=== PATIENT | female | born 1975 | race Caucasian/White ===

== ENCOUNTER 2018-12-21 06:50 | Day surgery (SDC) | payer BC ==
[~2018-12-21 06:50] MED LIST: Lactated Ringers 1,000 ML IV SCH
--- NOTE | 2018-12-21 07:16 | PCM.PREANE ---
Preanesthetic Assessment - Anesthesia/Transfusion/Family Hx Anesthesia History: Prior Anesthesia Without Reaction Family History of Anesthesia Reaction: No Transfusion History: Prior Transfusion Without Reaction Intubation History: Unknown - Review of Systems General: No Symptoms Pulmonary: No Symptoms Cardiovascular: No Symptoms Gastrointestinal: No Symptoms Neurological: No Symptoms Other: Reports: None - Physical Assessment Height: 1.6 m Weight: 86.183 kg ASA Class: 2 Mental Status: Alert & Oriented x3 Airway Class: Mallampati = 1 Dentition: Reports: Normal Dentition Thyro-Mental Finger Breadths: 3 Mouth Opening Finger Breadths: 3 ROM/Head Extension: Full Lungs: Clear to Auscultation, Normal Respiratory Effort Cardiovascular: Regular Rate, Regular Rhythm - Lab Values: Laboratory Last Values Urine HCG, Qual NEGATIVE (NEGATIVE) 12/21/18 07:00 - Allergies Allergies/Adverse Reactions: Allergies Allergy/AdvReac Type Severity Reaction Status Date / Time No Known Allergies Allergy Verified 12/19/18 10:19 - Blood Blood Available: No - Anesthesia Plan Pre-Op Medication Ordered: None - Acknowledgements Anesthesia Type Planned: General Anesthesia Pt an Appropriate Candidate for the Planned Anesthesia: Yes Alternatives and Risks of Anesthesia Discussed w Pt/Guardian: Yes Pt/Guardian Understands and Agrees with Anesthesia Plan: Yes PreAnesthesia Questionnaire HEENT History: Reports: Other (See Below) Other HEENT History: wears glasses Cardiovascular History: Reports: None Respiratory History: Reports: None Gastrointestinal History: Reports: Other (See Below) Other Gastrointestinal History: hx crohn's Genitourinary History: Reports: None 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: Musculoskeletal History: Reports: None Neurological History: Reports: None Psychiatric History: Reports: None Endocrine/Metabolic History: Reports: Obesity/BMI 30+ Hematologic History: Reports: Anemia, Blood Transfusion(s) Immunologic History: Reports: None Oncologic (Cancer) History: Reports: None Dermatologic History: Reports: None - Past Surgical History Head Surgeries/Procedures: Reports: None HEENT Surgical History: Reports: None Cardiovascular Surgical History: Reports: None Respiratory Surgical History: Reports: None GI Surgical History: Reports: Colonoscopy, EGD Female Surgical History: Reports: Section (x2), Endometrial Ablation Endocrine Surgical History: Reports: None Neurological Surgical History: Reports: None Musculoskeletal Surgical History: Reports: None Oncologic Surgical History: Reports: None Dermatological Surgical History: Reports: None - SUBSTANCE USE Smoking Status *Q: Former Smoker Tobacco Use Within Last Twelve Months: No Recreational Drug Use History: No - HOME MEDS Home Medications: Home Meds . [No Known Home Meds] 12/19/18 [History] - CURRENT (IN HOUSE) MEDS Current Meds: Current Medications Cefazolin Sodium/Dextrose 2 gm (/ Premix) 50 mls @ 100 mls/hr IV ONCALL NIKIA Lactated Ringer's (Ringers, Lactated) 1,000 mls @ 100 mls/hr IV [facility] Oxycodone/Acetaminophen (Percocet 325-5 Mg) 1 - 2 tab PO Q4H PRN PRN Reason: Pain
[2018-12-21] MEDS ORDERED: Lidocaine 1% 20 ML MDV ONE (07:28)
[2018-12-21] MEDS ORDERED: Acetaminophen/oxyCODONE 325-5 MG Tab PO PRN (08:00)
[2018-12-21] MEDS ORDERED: ceFAZolin 2 GM in Premix Bag 1 BAG IV SCH (08:00)
[2018-12-21] MEDS ORDERED: Propofol 200 MG/20 ML SDV ONE (08:15)
[2018-12-21] MEDS ORDERED: Midazolam 1 MG/ML 2 ML SDV ONE (08:15)
[2018-12-21] MEDS ORDERED: fentaNYL 250 MCG/5 ML SDV ONE (08:15)
[2018-12-21] MEDS ORDERED: Ondansetron 4 MG/2 ML SDV IVPUSH ONE (08:56)
[2018-12-21] MEDS ORDERED: fentaNYL 100 MCG/2 ML SDV IVPUSH PRN (08:56)
[2018-12-21] MEDS ORDERED: HYDROmorphone 2 MG/ML SDV IVPUSH ONE (08:56)
[2018-12-21] MEDS ORDERED: Ondansetron 4 MG/2 ML SDV ONE (08:57)
[2018-12-21] MEDS ORDERED: Dexamethasone 4 MG/ML 5 ML MDV ONE (08:57)
[2018-12-21] MEDS ORDERED: Ketorolac 30 MG/ML SDV ONE (08:57)
--- NOTE | 2018-12-21 09:07 | PCM.OPNOTE ---
- General Post-Op/Procedure Note Date of Surgery/Procedure: 12/21/18 Operative Procedure(s): L knee scope with PMM Post-Op Diagnosis: L knee medial meniscus tear Anesthesia Technique: General LMA Primary Surgeon: Jessica Chamorro Bat Lathe Operator: Tana Beard in mLs: 5 Condition: Good Free Text/Narrative:: tt=12 min #[id number]
[2018-12-21] MEDS ORDERED: HYDROmorphone 2 MG/ML Syringe ONE (10:41)
--- NOTE | 2018-12-21 15:27 | OR ---
SURGEON: Jessica Chamorro MD DATE OF PROCEDURE: 12/21/2018 PREOPERATIVE DIAGNOSIS: Left knee medial meniscus tear. POSTOPERATIVE DIAGNOSIS: Left knee medial meniscus tear. PROCEDURE: Left knee arthroscopy with partial medial meniscectomy. STRUCTURAL TEST ENGINEER: Tana Beard RN. ANESTHESIA: General. ESTIMATED BLOOD LOSS: 5 mL. TOURNIQUET TIME: 12 minutes. COMPLICATIONS: None. DVT PROPHYLAXIS: Not indicated. IMPLANTS USED: None. BRIEF HISTORY: Jeannine is a 43-year-old female, who has had complaint of progressive left knee pain. An MRI did confirm a tear of the medial meniscus. Due to her lack of response to conservative treatment, I did recommend surgical intervention. The risks and goals of procedure were discussed with the patient and were documented preoperatively. She agreed to proceed. DESCRIPTION OF PROCEDURE: The patient was properly identified and brought to the operating room. She was transferred from the OR cart and placed on the operating table in supine position. General anesthesia was administered. After adequate anesthesia was obtained, a well-padded tourniquet was applied to the left lower extremity. The left lower extremity was then prepped in standard fashion using ChloraPrep solution. It was then sterilely draped. A time-out was performed to ensure correct site and procedure. Preoperative antibiotics were given. The surgical site had been marked preoperatively. An Esmarch was used to exsanguinate the left lower extremity and the tourniquet was inflated to 250 mmHg. A lateral portal arthrotomy was established. Blunt trocar and cannula were introduced into the suprapatellar pouch. Camera, inflow, and outflow were assembled. No significant synovitis was noted. The patellofemoral joint was visualized. No degenerative changes were noted. The patella appeared to track centrally. I then extended down the lateral and medial gutter. No loose bodies were identified. I then entered the medial compartment. A medial portal arthrotomy was established. A blunt probe was inserted. She was found to have a radial tear of the posterior horn of the medial meniscus, which was unstable. Using a combination of biters and shaver, this was resected back to a stable remnant. The remainder of the meniscus was probed and found to be stable. The joint surfaces showed minor grade 1 to grade 2 degenerative changes in the medial compartment. I then entered the notch. Both the ACL and PCL were visualized and probed and found to be intact. I then entered the lateral compartment. The lateral meniscus was intact. This was probed and found to be stable. 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 Instruments were then removed from the knee. The portal sites were closed with 3-0 nylon. A 1% lidocaine was injected along the portal tracts. Xeroform gauze was placed over the wound and a bulky dressing was applied. The tourniquet was then deflated. She was awakened from her anesthetic and transferred back to the operating room cart. She was brought to recovery room in stable condition. All needle and sponge counts were correct. REGGIE / ADINA /[id number]
== END 2018-12-21 11:30 | disposition home or self-care (01) ==
LOC: MW.SDS 06:50
PROVIDERS: ATTEND Orthopaedic Surgery
DX: S83.242A Other tear of medial meniscus, current injury, left knee, initial encounter (principal); M25.462 Effusion, left knee; K50.90 Crohn's disease, unspecified, without complications; X58.XXXA Exposure to other specified factors, initial encounter; Y93.68 Activity, volleyball (beach) (court); Z87.891 Personal history of nicotine dependence
CPT/HCPCS: 29881; 81025; A9270; J1100; J1170; J1885; J2001; J2250; J2405; J2704; J3010; J7120; 88304

== ENCOUNTER 2019-10-19 21:37 | Emergency (ER) | payer BC ==
--- NOTE | 2019-10-19 22:01 | EDM.PDOC ---
ED HPI GENERAL MEDICAL PROBLEM - General Chief Complaint: Gastrointestinal Problem Stated Complaint: BLADDER PROBLEM Time Seen by Provider: 10/19/19 21:53 Source of Information: Reports: Patient History Limitations: Reports: No Limitations - History of Present Illness INITIAL COMMENTS - FREE TEXT/NARRATIVE: -43 year-old female presents with right upper quadrant pain nausea vomiting. Patient has a strong family history of gallbladder disease and thinks she has gallbladder disease. Onset: Today Duration: Hour(s): Location: Reports: Abdomen Quality: Reports: Ache Severity: Moderate Improves with: Reports: None Worsens with: Reports: None Context: Reports: Activity Associated Symptoms: Reports: No Other Symptoms, Nausea/Vomiting Right Shoulder Pain Score (Numeric/FACES): 5 - Related Data Allergies Allergy/AdvReac Type Severity Reaction Status Date / Time No Known Allergies Allergy Verified 10/19/19 21:50 Home Meds: Home Meds . 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: Musculoskeletal History: Reports: None Neurological History: Reports: None Psychiatric History: Reports: None Endocrine/Metabolic History: Reports: Obesity/BMI 30+ Hematologic History: Reports: Anemia, Blood Transfusion(s) Immunologic History: Reports: None Oncologic (Cancer) History: Reports: None Dermatologic History: Reports: None - Past Surgical History Head Surgeries/Procedures: Reports: None HEENT Surgical History: Reports: None Cardiovascular Surgical History: Reports: None Respiratory Surgical History: Reports: None GI Surgical History: Reports: Colonoscopy, EGD Female Surgical History: Reports: Section (x2), Endometrial Ablation Endocrine Surgical History: Reports: None Neurological Surgical History: Reports: None Musculoskeletal Surgical History: Reports: None Oncologic Surgical History: Reports: None Dermatological Surgical History: Reports: None ED ROS GENERAL - Review of Systems Review Of Systems: See Below Constitutional: Reports: No Symptoms. Denies: Fever, Chills, Malaise HEENT: Reports: No Symptoms. Denies: Contact Lenses, Dental Pain, Ear Discharge Respiratory: Reports: No Symptoms. Denies: Shortness of Breath, Wheezing, Pleuritic Chest Pain Cardiovascular: Reports: No Symptoms. Denies: Chest Pain, Blood Pressure Problem, Dyspnea on Exertion, Edema Endocrine: Reports: No Symptoms GI/Abdominal: Reports: Abdominal Pain, Nausea, Vomiting, Other (Right upper quadrant pain) : Reports: No Symptoms Musculoskeletal: Reports: No Symptoms Skin: Reports: No Symptoms. Denies: Cyanosis, Jaundice, Mottled, Pallor, Bruising, Pruritis, Rash, Erythema Neurological: Reports: No Symptoms. Denies: Confusion, Dizziness Psychiatric: Reports: No Symptoms. Denies: Agitation, Anxiety Hematologic/Lymphatic: Reports: No Symptoms. Denies: Anemia, Easy Bleeding Immunologic: Reports: No Symptoms. Denies: Anaphylaxis, Food Allergy, Grass Allergy, Mold Allergy ED EXAM, GI/ABD - Physical Exam Exam: See Below Text/Narrative:: This is a 43-year-old female with right upper quadrant pain. History of gallstones in her family Exam Limited By: No Limitations General Appearance: Alert, WD/WN, No Apparent Distress Eyes: Bilateral: Normal Appearance, EOMI Ears: Normal External Exam, Normal Canal, Hearing Grossly Normal, Normal TMs Throat/Mouth: Normal Inspection Head: Atraumatic Neck: Normal Inspection, Supple, Non-Tender Respiratory/Chest: No Respiratory Distress, Lungs Clear, Normal Breath Sounds, No Accessory Muscle Use Cardiovascular: Normal Peripheral Pulses, Regular Rate, Rhythm, No JVD, No Murmur GI/Abdominal Exam: Normal Bowel Sounds, Soft, Non-Tender, No Distention, No Abnormal Bruit (Female) Exam: Deferred. No: Normal External Exam, Normal Speculum Exam Rectal (Female) Exam: Deferred Back Exam: Normal Inspection, Full Range of Motion Psychiatric: Normal Affect, Normal Mood Skin Exam: Warm, Dry, Intact, Normal Color Course - Vital Signs Text/Narrative:: Patient started on IV fluids she declined her pain medicine. Ultrasound reveals no evidence of gallstones but does show a thickened contracted gallbladder. Patient's chest x-ray is normal. Patient's labs CBC and CMP are normal limits with normal LFTs. Patient will be discharged home with a diagnosis of gastroenteritis. Patient to follow-up with primary care physician Last Recorded V/S: Last Vital Signs Temp 98.0 F 10/19/19 21:44 Pulse 84 10/19/19 21:44 Resp 18 10/19/19 21:44 BP 132/88 10/19/19 21:44 Pulse Ox 99 10/19/19 21:44 - Orders/Labs/Meds Orders: Active Orders 24 hr Category Date Time Status Sodium Chloride 0.9% [Normal Saline] 1,000 ml Med 10/19/19 22:03 Active IV .Bolus Medication Orders Sodium Chloride (Normal Saline) 1,000 mls @ 1,000 drops/hr IV .Bolus ONE Stop: 10/20/19 13:02 Last Admin: 10/19/19 22:31 Dose: 1,000 drops/hr Labs: Laboratory Tests 10/19/19 10/19/19 10/19/19 Range/Units 22:10 22:10 23:13 WBC 10.77 (4.0-11.0) K/uL RBC 4.36 (4.30-5.90) M/uL Hgb 11.4 L (12.0-16.0) g/dL Hct 34.9 L (36.0-46.0) % MCV 80.0 (80.0-98.0) fL MCH 26.1 L (27.0-32.0) pg MCHC 32.7 (31.0-37.0) g/dL RDW Std Deviation 44.3 (28.0-62.0) fl RDW Coeff of Hernan 15 (11.0-15.0) % Plt Count 418 H (150-400) K/uL MPV 9.40 (7.40-12.00) fL Neut % (Auto) 65.3 (48.0-80.0) % Lymph % (Auto) 26.6 (16.0-40.0) % [place] % (Auto) 6.3 (0.0-15.0) % Eos % (Auto) 1.5 (0.0-7.0) % Baso % (Auto) 0.3 (0.0-1.5) % Neut # (Auto) 7.0 H (1.4-5.7) K/uL Lymph # (Auto) 2.9 H (0.6-2.4) K/uL King[place] # (Auto) 0.7 (0.0-0.8) K/uL Eos # (Auto) 0.2 (0.0-0.7) K/uL Baso # (Auto) 0.0 (0.0-0.1) K/uL Nucleated RBC % 0.0 /100WBC Nucleated RBCs # 0 K/uL Sodium 139 (136-145) mmol/L Potassium 3.9 (3.5-5.1) mmol/L Chloride 103 (98-107) mmol/L Carbon Dioxide 27.0 (21.0-32.0) mmol/L BUN 14 (7.0-18.0) mg/dL Creatinine 0.8 (0.6-1.0) mg/dL Est Cr Clr Drug Dosing 77.44 mL/min Estimated GFR (MDRD) > 60.0 ml/min Glucose 100 (74-106) mg/dL Calcium 9.1 (8.5-10.1) mg/dL Total Bilirubin 0.2 (0.2-1.0) mg/dL AST 16 (15-37) IU/L ALT 33 (14-63) IU/L Alkaline Phosphatase 82 (46-116) U/L Total Protein 8.1 (6.4-8.2) g/dL Albumin 3.7 (3.4-5.0) g/dL Globulin 4.4 H (2.6-4.0) g/dL Albumin/Globulin Ratio 0.8 L (0.9-1.6) Urine Color YELLOW Urine Appearance CLEAR Urine pH 6.5 (5.0-8.0) Ur Specific [place] 1.020 (1.001-1.035) Urine Protein NEGATIVE (NEGATIVE) mg/dL Urine Glucose (UA) NEGATIVE (NEGATIVE) mg/dL Urine Ketones NEGATIVE (NEGATIVE) mg/dL Urine Occult Blood NEGATIVE (NEGATIVE) Urine Nitrite NEGATIVE (NEGATIVE) Urine Bilirubin NEGATIVE (NEGATIVE) Urine Urobilinogen 0.2 (<2.0) EU/dL Ur Leukocyte Esterase NEGATIVE (NEGATIVE) Urine HCG, Qual (NEGATIVE) 10/19/19 Range/Units 23:13 WBC (4.0-11.0) K/uL RBC (4.30-5.90) M/uL Hgb (12.0-16.0) g/dL Hct (36.0-46.0) % MCV (80.0-98.0) fL MCH (27.0-32.0) pg MCHC (31.0-37.0) g/dL RDW Std Deviation (28.0-62.0) fl RDW Coeff of Hernan (11.0-15.0) % Plt Count (150-400) K/uL MPV (7.40-12.00) fL Neut % (Auto) (48.0-80.0) % Lymph % (Auto) (16.0-40.0) % [place] % (Auto) (0.0-15.0) % Eos % (Auto) (0.0-7.0) % Baso % (Auto) (0.0-1.5) % Neut # (Auto) (1.4-5.7) K/uL Lymph # (Auto) (0.6-2.4) K/uL Kingman # (Auto) (0.0-0.8) K/uL Eos # (Auto) (0.0-0.7) K/uL Baso # (Auto) (0.0-0.1) K/uL Nucleated RBC % /100WBC Nucleated RBCs # K/uL Sodium (136-145) mmol/L Potassium (3.5-5.1) mmol/L Chloride (98-107) mmol/L Carbon Dioxide (21.0-32.0) mmol/L BUN (7.0-18.0) mg/dL Creatinine (0.6-1.0) mg/dL Est Cr Clr Drug Dosing mL/min Estimated GFR (MDRD) ml/min Glucose (74-106) mg/dL Calcium (8.5-10.1) mg/dL Total Bilirubin (0.2-1.0) mg/dL AST (15-37) IU/L ALT (14-63) IU/L Alkaline Phosphatase (46-116) U/L Total Protein (6.4-8.2) g/dL Albumin (3.4-5.0) g/dL Globulin (2.6-4.0) g/dL Albumin/Globulin Ratio (0.9-1.6) Urine Color Urine Appearance Urine pH (5.0-8.0) Ur Specific [place] (1.001-1.035) Urine Protein (NEGATIVE) mg/dL Urine Glucose (UA) (NEGATIVE) mg/dL Urine Ketones (NEGATIVE) mg/dL Urine Occult Blood (NEGATIVE) Urine Nitrite (NEGATIVE) Urine Bilirubin (NEGATIVE) Urine Urobilinogen (<2.0) EU/dL Ur Leukocyte Esterase (NEGATIVE) Urine HCG, Qual NEGATIVE (NEGATIVE) Meds: Medications Generic Name Dose Route Start Last Admin Trade Name Freq PRN Reason Stop Dose Admin Sodium Chloride 1,000 mls @ 1,000 drops/hr 10/19/19 22:03 10/19/19 22:31 Normal Saline IV 10/20/19 13:02 1,000 drops/hr .Bolus ONE Administration Discontinued Medications Generic Name Dose Route Start Last Admin Trade Name Freq PRN Reason Stop Dose Admin Morphine Sulfate 6 mg 10/19/19 22:05 10/19/19 22:31 Morphine IVPUSH 10/19/19 22:06 Not Given ONETIME ONE Ondansetron HCl 4 mg 10/19/19 22:05 10/19/19 22:31 Zofran IVPUSH 10/19/19 22:06 Not Given ONETIME ONE Ondansetron HCl Confirm 10/19/19 22:06 10/19/19 22:31 Zofran Administered 10/19/19 22:07 Not Given Dose 4 mg .ROUTE .STK-MED ONE Departure - Departure Time of Disposition: 00:06 Disposition: Home, Self-Care 01 Condition: Good Clinical Impression: Gastroenteritis - Discharge Information Instructions: Viral Gastroenteritis, Adult Referrals: Scarlett Brito DO [Primary Care Provider] - Forms: ED Department Discharge Sepsis Event Note - Evaluation Sepsis Screening Result: No Definite Risk - Focused Exam Vital Signs: Vital Signs Temp Pulse Resp BP Pulse Ox 10/19/19 21:44 98.0 F 84 18 132/88 99 Date Exam was Performed: 10/20/19 Time Exam was Performed: 00:05 - My Orders Last 24 Hours: My Active Orders 10/19/19 22:03 Sodium Chloride 0.9% [Normal Saline] 1,000 ml IV .Bolus - Assessment/Plan Last 24 Hours: My Active Orders 10/19/19 22:03 Sodium Chloride 0.9% [Normal Saline] 1,000 ml IV .Bolus
[2019-10-19] MEDS ORDERED: Sodium Chloride 0.9% 1,000 ML IV ONE (22:03)
[2019-10-19] MEDS ORDERED: Morphine 10 MG/ML Syringe IVPUSH ONE (22:05)
[2019-10-19] MEDS ORDERED: Ondansetron 4 MG/2 ML SDV IVPUSH ONE (22:05)
[2019-10-19] MEDS ORDERED: Ondansetron 4 MG/2 ML SDV ONE (22:06)
[2019-10-19 22:44] LABS: BLOOD UREA NITROGEN,BUN 14 mg/dL (7.0-18.0); CHLORIDE,CL 103 mmol/L (98-107); GLUCOSE RANDOM 100 mg/dL (74-106); POTASSIUM,K 3.9 mmol/L (3.5-5.1); SODIUM,NA 139 mmol/L (136-145)
--- NOTE | 2019-10-19 23:12 | CR ---
INDICATION: Pain TECHNIQUE: Frontal view of the chest. COMPARISON: None FINDINGS: The lungs are clear. There is no sizable pleural effusion or pneumothorax. The cardiomediastinal silhouette is normal. There is a small hiatal hernia. The visualized osseous structures are unremarkable. IMPRESSION: No acute process. Small hiatal hernia. Dictated by Geoff Maldonado MD @ Oct 19 2019 11:08PM Signed by Dr. Geoff Maldonado @ Oct 19 2019 11:10PM
--- NOTE | 2019-10-19 23:14 | US ---
INDICATION: Back pain. COMPARISON: None available TECHNIQUE: Ultrasound examination of the right upper quadrant was performed. FINDINGS: The gallbladder is contracted, resulting in thickening of its painter. No sign of cholelithiasis or acute cholecystitis. There is no sign of gallbladder wall thickening or pericholecystic fluid. There is a mildly positive sonographic Pollock sign with mild pain over the gallbladder during ultrasound examination. However, the patient`s main pain is in the interscapular region. The common bile duct is normal in caliber at 5 mm. The pancreatic head and body were examined, and these are normal in appearance. The visualized superior abdominal aorta and visualized portions of the inferior vena cava are normal in appearance. The liver shows no sign of mass or contour abnormality, and there is no sign of ascites. There is prominently increased echogenicity throughout the liver consistent with fatty infiltration. The right kidney is unremarkable. IMPRESSION: Contracted gallbladder. No other abnormality seen in the biliary system. Mildly positive sonographic Pollock sign with mild pain over the gallbladder during examination. However, the patient`s main pain is in the interscapular region posteriorly. Prominent fatty infiltration of the liver. Dictated by Jori Diaz MD @ Oct 19 2019 11:09PM Signed by Dr. Jori Diaz @ Oct 19 2019 11:12PM
== END 2019-10-20 00:29 | disposition home or self-care (01) ==
LOC: MW.ED 21:37
DX: K52.9 Noninfective gastroenteritis and colitis, unspecified (principal); E66.9 Obesity, unspecified; Z68.35 Body mass index [BMI] 35.0-35.9, adult
CPT/HCPCS: 36415; 71045; 76705; 80053; 81003; 81025; 85025; 96360; 99284; J7030; 99283

== ENCOUNTER 2021-10-16 16:35 | Emergency (ER) | payer OTHER, BC | END 2021-10-16 17:45 | disposition home or self-care (01) | LOC: MW.ED 16:35 | DX: S19.9XXA Unspecified injury of neck, initial encounter (principal); S29.9XXA Unspecified injury of thorax, initial encounter; E66.9 Obesity, unspecified; Z68.33 Body mass index [BMI] 33.0-33.9, adult; V89.2XXA Person injured in unspecified motor-vehicle accident, traffic, initial encounter; Y92.410 Unspecified street and highway as the place of occurrence of the external cause | CPT/HCPCS: 71046; 71046-26; 72125; 72125-26; 99284-25 ==

== ENCOUNTER 2023-09-03 02:49 | Emergency (ER) | payer BC ==
[2023-09-03] MEDS ORDERED: Ketorolac 30 MG/ML SDV IVPUSH ONE (03:12)
[2023-09-03 03:15] LABS: BASOPHILS ABSOLUTE AUTO 0.04 K/uL (0.00-0.20); BASOPHILS PERCENT AUTO 0.2 % (0.0-1.0); EOSINOPHILS ABSOLUTE AUTO 0.11 K/uL (0.00-0.45); EOSINOPHILS PERCENT AUTO 0.7 % (0.0-6.0); HEMATOCRIT 38.7 % (37.0-47.0); HEMOGLOBIN 13.2 g/dL (12.0-16.0); IMMATURE GRAN ABSOLUTE AUTO 0.06 K/uL (0.00-0.05); IMMATURE GRAN PERCENT AUTO 0.4 % (0.0-0.4); LYMPHOCYTES PERCENT AUTO 14.4 % (24.0-44.0); MEAN CORPUSCULAR HEMOGLOBIN 29.9 pg (28.0-32.0); MEAN CORPUSCULAR HGB CONC 34.1 g/dL (32.0-36.0); MEAN CORPUSCULAR VOLUME 87.6 fL (83.0-99.0); MEAN PLATELET VOLUME 9.5 fL (9.4-12.3); MONOCYTES ABSOLUTE AUTO 0.75 K/uL (0.00-0.80); MONOCYTES PERCENT AUTO 4.5 % (0.0-8.0); NEUTROPHILS ABSOLUTE AUTO 13.26 K/uL (1.80-7.70); NEUTROPHILS PERCENT AUTO 79.8 % (41.0-71.0); PLATELET COUNT,PLT 394 K/uL (150-400); RED BLOOD CELL COUNT 4.42 M/uL (4.10-5.30); WHITE BLOOD CELL COUNT,WBC 16.62 K/uL (3.9-11.3)
[2023-09-03] MEDS ORDERED: Sodium Chloride 0.9% 500 ML IV SCH (03:15)
[2023-09-03] MEDS ORDERED: Iopamidol 755 MG/ML 500 ML Multipack Bottle IVPUSH ONE (03:17)
[2023-09-03 03:28] LABS: A/G RATIO 0.8 (0.9-1.6); ALBUMIN 3.6 g/dL (3.4-5.0); BILIRUBIN TOTAL 0.5 mg/dL (0.2-1.0); CALCIUM 9.1 mg/dL (8.5-10.1); CARBON DIOXIDE,CO2 28.7 mmol/L (21.0-32.0); CREATININE 0.8 mg/dL (0.6-1.0); EST CRCL DRUG DOSING (CG) 72.69 mL/min; POTASSIUM,K 4.3 mmol/L (3.5-5.1); PROTEIN TOTAL,TP 8.2 g/dL (6.4-8.2)
[2023-09-03 03:57] LABS: APPEARANCE,URINE CLEAR; BILIRUBIN,URINE NEGATIVE (NEGATIVE); COLOR,URINE YELLOW; GLUCOSE,URINE NEGATIVE (NEGATIVE); KETONES,URINE NEGATIVE (NEGATIVE); LEUKOCYTE ESTERASE,URINE NEGATIVE (NEGATIVE); NITRITE,URINE NEGATIVE (NEGATIVE); OCCULT BLOOD,URINE NEGATIVE (NEGATIVE); PH,URINE 7.5 (5.0-8.0); PROTEIN,URINE NEGATIVE (NEGATIVE); UROBILINOGEN,URINE 0.2 EU/dL (<2.0)
[2023-09-03 04:11] LABS: EPITHELIAL CELLS,URINE MODERATE (NONE-FEW); RBC,URINE NONE SEEN (0-2/HPF); WBC,URINE 0-1 (0-5/HPF)
[2023-09-03 04:12] LABS: BACTERIA,URINE NOT SEEN (NEGATIVE)
[2023-09-03] MEDS ORDERED: Ertapenem 1 GM in Sodium Chloride 0.9% 50 ML IV ONE (04:43)
[2023-09-03] MEDS ORDERED: Morphine 4 MG/ML Syringe IVPUSH PRN (06:51)
[2023-09-03] MEDS ORDERED: Naloxone 0.4 MG/ML SDV IVPUSH PRN (06:51)
[2023-09-03] MEDS ORDERED: Propofol 200 MG/20 ML SDV ONE (09:43)
[2023-09-03] MEDS ORDERED: dexmedeTOMIDine HCl 200 MCG/2 ML SDV ONE (09:43)
[2023-09-03] MEDS ORDERED: fentaNYL 100 MCG/2 ML SDV ONE (09:43)
[2023-09-03] MEDS ORDERED: Ropivacaine 0.5% 5 MG/ML 30 ML SDV ONE (09:49)
[2023-09-03] MEDS ORDERED: Bupivacaine 0.25% 30 ML SDV ONE (09:49)
[2023-09-03] MEDS ORDERED: Bupivacaine 0.5% 30 ML SDV ONE (10:01)
[2023-09-03] MEDS ORDERED: Magnesium Sulfate (4.06 MEQ/ML) 5 GM/10 ML SDV ONE (10:19)
[2023-09-03] MEDS ORDERED: Ondansetron 4 MG/2 ML SDV ONE (10:20)
[2023-09-03] MEDS ORDERED: Dexamethasone 4 MG/ML 5 ML MDV ONE (10:20)
[2023-09-03] MEDS ORDERED: Sugammadex Sodium 200 MG/2 ML VIAL ONE (10:45)
[2023-09-03] MEDS ORDERED: Ketorolac 30 MG/ML SDV ONE (10:45)
== END 2023-09-03 08:08 | disposition other institution (70) ==
LOC: MW.ED 02:49
DX: K35.80 Unspecified acute appendicitis (principal); E66.9 Obesity, unspecified; Z86.16 Personal history of COVID-19; Z68.35 Body mass index [BMI] 35.0-35.9, adult
CPT/HCPCS: 36415; 74177; 80053; 81001; 85025; 96365; 96375; 99285; J0131; J0665; J1100; J1335; J1885; J2270; J2405; J2704; J2795; J3010; J3475; J3490; J7040; Q9967

== ENCOUNTER 2023-09-03 09:00 | Day surgery (SDC) | payer BC ==
[2023-09-03] MEDS ORDERED: Naloxone 0.4 MG/ML SDV IVPUSH PRN ×2 (10:24→11:30)
[2023-09-03] MEDS ORDERED: HYDROmorphone 1 MG/ML Syringe IVPUSH PRN (10:24)
[2023-09-03] MEDS ORDERED: Morphine 2 MG/ML SYRINGE IVPUSH PRN (10:24)
[2023-09-03] MEDS ORDERED: fentaNYL 50 MCG/ML SDV IVPUSH PRN (10:24)
[2023-09-03] MEDS ORDERED: Ondansetron 4 MG/2 ML SDV IVPUSH PRN ×2 (10:24→11:30)
[2023-09-03] MEDS ORDERED: droPERidol 5 MG/2 ML SDV IVPUSH PRN (10:24)
[2023-09-03] MEDS ORDERED: Metoclopramide 10 MG/2 ML SDV IVPUSH PRN (10:24)
[2023-09-03] MEDS ORDERED: Albuterol 0.083% 2.5 MG/3 ML Neb Soln NEB PRN (10:24)
[2023-09-03] MEDS ORDERED: Lactated Ringers 1,000 ML IV SCH (10:45)
[2023-09-03] MEDS ORDERED: HYDROmorphone 2 MG/ML Syringe IVPUSH PRN (11:30)
[2023-09-03] MEDS ORDERED: Acetaminophen 325 MG Tab PO PRN (11:30)
[2023-09-03] MEDS ORDERED: Acetaminophen/HYDROcodone 325-5 MG Tab PO PRN (11:30)
[2023-09-03] MEDS ORDERED: Acetaminophen/HYDROcodone 325-5 MG Tab PO ONE (13:33)
== END 2023-09-03 14:02 | disposition home or self-care (01) ==
LOC: MW.SDS 09:00
PROVIDERS: ATTEND Surgery
DX: K35.80 Unspecified acute appendicitis (principal); E66.9 Obesity, unspecified; Z68.35 Body mass index [BMI] 35.0-35.9, adult; Z87.891 Personal history of nicotine dependence
CPT/HCPCS: 44970; 64486; 64488; A9270; J1170; J7030; J7120; 00840